=== PATIENT | female | born 1945 | race Two or more races ===

== ENCOUNTER 2018-06-25 10:03 | Outpatient (CLI) | payer OTHER | END 2018-06-25 10:12 | disposition home or self-care (01) | LOC: SONOGRAMA 10:03 | DX: E04.2 Nontoxic multinodular goiter (principal) ==

== ENCOUNTER 2022-05-13 06:00 | Day surgery (SDC) | payer OTHER ==
[~2022-05-13 06:00] MED LIST: CREST PO; DIGOX PO; GABAPENTIN100 M2 PO; HORIZANT600 MG PO; INVOKANA300 MG PO; JANUVIA PO; LEVEMIR; MYSOLINE50 MG PO; OMEPRAZO PO; SINGULAIR10 MG PO; VALSAR PO; VITAMIN D-40010 MCG PO; [UNRECOGNIZED DRUG - OTHER] PO
== END 2022-05-13 10:55 | disposition home or self-care (01) ==
LOC: CIR.AMB 06:00
PROVIDERS: ATTEND Anesthesiology Pain Medicine
DX: M51.15 Intervertebral disc disorders with radiculopathy, thoracolumbar region (principal); Z20.822 Contact with and (suspected) exposure to COVID-19; Z79.84 Long term (current) use of oral hypoglycemic drugs; E11.9 Type 2 diabetes mellitus without complications; I10 Essential (primary) hypertension; Z95.0 Presence of cardiac pacemaker; J44.9 Chronic obstructive pulmonary disease, unspecified; Z99.89 Dependence on other enabling machines and devices; G47.33 Obstructive sleep apnea (adult) (pediatric); Z87.891 Personal history of nicotine dependence; E66.9 Obesity, unspecified

== ENCOUNTER 2022-07-06 07:30 | Inpatient (IN) | payer OTHER ==
[~2022-07-06] VITALS: Ht 157.5 cm; Wt 82.1 kg
[2022-07-06] MEDS ORDERED: SPIRIVA RESPIMAT4 G1 IH (09:16)
[2022-07-06] MEDS ORDERED: SINGULAIR 10MG10 MG (09:16)
[2022-07-06] MEDS ORDERED: WIXELA 500-501 EACH IH (09:17)
[2022-07-06] MEDS ORDERED: RELTONE200 MG PO (09:17)
[2022-07-06] MEDS ORDERED: PROAIR RESPICL90 MCG IH (09:17)
[2022-07-06] MEDS ORDERED: SEROQUEL XR150 MG PO (09:18)
[2022-07-06] MEDS ORDERED: BUDESONIDE0.5 MG/2 M (09:19)
[2022-07-06] MEDS ORDERED: SYMBICORT 16010.2 GM IH (09:19)
[2022-07-06] MEDS ORDERED: INVOKANA300 MG PO (09:20)
[2022-07-06] MEDS ORDERED: LEVEMIR100 UNIT/1 (09:20)
[2022-07-06] MEDS ORDERED: GRALISE600 MG PO (09:21)
[2022-07-06] MEDS ORDERED: LEXAPRO20 MG PO (09:21)
[2022-07-06] MEDS ORDERED: MIRAPEX0.25 MG PO (09:22)
[2022-07-06] MEDS ORDERED: ULTRAM50 MG PO (09:22)
[2022-07-06] MEDS ORDERED: PRIMIDONE50 MG PO (09:22)
[2022-07-18] MEDS ORDERED: CRESTOR10 MG (16:17)
[2022-07-18] MEDS ORDERED: VALSARTAN320 MG (16:17)
[2022-07-18] MEDS ORDERED: JANUVIA25 MG (16:18)
[2022-07-18] MEDS ORDERED: OMEPRAZOLE MAGN20 MG (16:18)
[2022-07-18] MEDS ORDERED: DIGOX250 MCG (16:19)
[2022-07-20] MEDS ORDERED: OXYC1TAB9 PO (06:52)
[2022-07-20] MEDS ORDERED: BACTRIM DS TAB1 EACH PO (06:52)
[2022-07-20] MEDS ORDERED: INTEGRA PLUS C1 EACH PO (06:52)
[2022-07-20] MEDS ORDERED: XARELTO10 MG PO (06:52)
== END 2022-07-20 11:08 | DRG 470 ==
LOC: SURG 07-11 07:30 → O/R 07-18 07:11 → SURG 07-18 15:48
PROVIDERS: ADMIT Orthopaedic Surgery Sports Medicine; ATTEND Orthopaedic Surgery Sports Medicine
PROC: 0SRB0JZ Replacement of Left Hip Joint with Synthetic Substitute, Open Approach (ICD-10-PCS; principal; 2022-07-18 10:00)
DX: M16.12 Unilateral primary osteoarthritis, left hip (principal); I10 Essential (primary) hypertension; E11.9 Type 2 diabetes mellitus without complications; J44.9 Chronic obstructive pulmonary disease, unspecified; G47.33 Obstructive sleep apnea (adult) (pediatric); G20 Parkinson's disease; Z96.642 Presence of left artificial hip joint; Z20.822 Contact with and (suspected) exposure to COVID-19

== ENCOUNTER 2023-01-19 13:53 | Outpatient (CLI) | payer OTHER ==
[~2023-01-19 13:53] MED LIST changes: +BACTRIM DS TAB1 EACH PO; +BUDESONIDE0.5 MG/2 M; +CRESTOR10 MG; +DIGOX250 MCG; +GRALISE600 MG PO; +INTEGRA PLUS C1 EACH PO; +JANUVIA25 MG; +LEVEMIR100 UNIT/1; +LEXAPRO20 MG PO; +MIRAPEX0.25 MG PO; +OMEPRAZOLE MAGN20 MG; +OXYC1TAB9 PO; +PRIMIDONE50 MG PO; +PROAIR RESPICL90 MCG IH; +RELTONE200 MG PO; +SEROQUEL XR150 MG PO; +SINGULAIR 10MG10 MG; +SPIRIVA RESPIMAT4 G1 IH; +SYMBICORT 16010.2 GM IH; +ULTRAM50 MG PO; +VALSARTAN320 MG; +WIXELA 500-501 EACH IH; +XARELTO10 MG PO
== END 2023-01-19 13:54 | disposition home or self-care (01) ==
LOC: NUCLEAR 13:53
PROVIDERS: ATTEND Anesthesiology Pain Medicine
DX: M85.80 Other specified disorders of bone density and structure, unspecified site (principal)

== ENCOUNTER 2023-02-06 12:46 | Outpatient (CLI) | payer OTHER | END 2023-02-06 12:52 | disposition home or self-care (01) | LOC: MRI 12:46 | PROVIDERS: ATTEND Anesthesiology Pain Medicine | DX: M47.26 Other spondylosis with radiculopathy, lumbar region (principal); M99.53 Intervertebral disc stenosis of neural canal of lumbar region; M43.16 Spondylolisthesis, lumbar region; M51.15 Intervertebral disc disorders with radiculopathy, thoracolumbar region | CPT/HCPCS: 72148 ==

== ENCOUNTER → 2024-08-16 12:07 | Outpatient (CLI) | payer OTHER ==
[2024-08-16 12:49] LABS: HEMATOCRIT 36.6 % (36.0-45.00); HEMOGLOBIN 12.2 g/dL (12.0-15.00); MEAN CELL VOLUME 87.6 fL (80.00-100.00); MEAN CORPUSCULAR HEMOGLOBIN 29.3 pg (27.00-32.0); MEAN CORPUSCULAR HGB CONC 33.4 g/dl (32.0-36.0); PLATELET COUNT 196 K/uL (150-450); RED BLOOD COUNT 4.18 M/uL (4.00-6.00); RED CELL DISTRIBUTION WIDTH 14.4 % (11.5-14.5)
[2024-08-16 13:12] LABS: COL EPI 97 SECONDS (82-175)
[2024-08-16 13:14] LABS: INR 1.02; PARTIAL THROMBOPLASTIN TIME 32.8 SECONDS (22.0-34.0); PROTHROMBIN TIME 11.1 SECONDS (9.0-11.5)
[2024-08-16 13:37] LABS: PH,URINE 5.5 (5.0-8.0); URINE APPEARANCE Clear; URINE BILIRRUBIN Negative (NEGATIVE); URINE BLOOD Negative; URINE COLOR Yellow; URINE KETONE Negative (NEGATIVE); URINE LEUKOCYTE Negative; URINE NITRATE Negative; URINE PROTEIN Negative (NEGATIVE); URINE UROBILINOGEN 0.2 E.U./dl
[2024-08-16 13:40] LABS: URINE BACTERIA 7.5 uL (0.0-1933); URINE EPITHELIAL CELLS 8.1 uL (0.0-38.8); URINE WBC 6.7 uL (0.0-23.2)
[2024-08-16 13:47] LABS: URINE GLUCOSE >=1000 MG/DL (NEGATIVE); URINE RBC 1.3 uL (0.0-20.8)
[2024-08-16 13:58] LABS: ALBUMIN 3.6 gm/dL (3.4-5.0); BILIRUBIN TOTAL 0.26 mg/dL (0.3-1.2); CALCIUM 9.7 mg/dL (8.5-10.1); CREATININE SERUM 1.14 mg/dL (0.55-1.02); GFR 46.1; GLOBULINA 4.1 G/DL (2.4-3.5); POTASSIUM 5.03 mEq/L (3.5-5.1); TOTAL PROTEIN 7.7 gm/dL (6.4-8.2)
== END | disposition home or self-care (01) ==
LOC: LAB 12:07
PROVIDERS: ATTEND Anesthesiology Pain Medicine
DX: M48.07 Spinal stenosis, lumbosacral region (principal); M99.33 Osseous stenosis of neural canal of lumbar region; Z01.818 Encounter for other preprocedural examination

== ENCOUNTER → 2024-09-12 11:38 | Outpatient (CLI) | payer OTHER ==
[2024-09-12 13:20] LABS: HEMATOCRIT 38.2 % (36.0-45.00); MEAN CELL VOLUME 86.7 fL (80.00-100.00); MEAN CORPUSCULAR HEMOGLOBIN 29.5 pg (27.00-32.0); PLATELET COUNT 212 K/uL (150-450); RED CELL DISTRIBUTION WIDTH 14.2 % (11.5-14.5)
[2024-09-12 14:02] LABS: COL EPI 115 SECONDS (82-175)
[2024-09-12 14:07] LABS: ALBUMIN 3.6 gm/dL (3.4-5.0); BILIRUBIN TOTAL 0.26 mg/dL (0.3-1.2); CALCIUM 9.8 mg/dL (8.5-10.1); CREATININE SERUM 1.25 mg/dL (0.55-1.02); GFR 41.45; GLOBULINA 4.3 G/DL (2.4-3.5); INR 1.04; PARTIAL THROMBOPLASTIN TIME 31.8 SECONDS (22.0-34.0); PROTHROMBIN TIME 11.3 SECONDS (9.0-11.5); TOTAL PROTEIN 7.9 gm/dL (6.4-8.2)
[2024-09-12 14:08] LABS: POTASSIUM 5.42 mEq/L (3.5-5.1)
[2024-09-12 14:11] LABS: URINE APPEARANCE Clear; URINE BILIRRUBIN Negative (NEGATIVE); URINE BLOOD Negative; URINE COLOR Yellow; URINE KETONE Negative (NEGATIVE); URINE LEUKOCYTE Negative; URINE NITRATE Negative; URINE PROTEIN Negative (NEGATIVE); URINE UROBILINOGEN 0.2 E.U./dl
[2024-09-12 14:12] LABS: URINE BACTERIA 18.8 uL (0.0-1933); URINE EPITHELIAL CELLS 4.3 uL (0.0-38.8); URINE RBC 3.2 uL (0.0-20.8); URINE WBC 6.6 uL (0.0-23.2)
[2024-09-12 14:14] LABS: URINE CAST 0.15 uL (0.0-1.40); URINE GLUCOSE >=1000 MG/DL (NEGATIVE)
== END | disposition home or self-care (01) ==
LOC: LAB 11:38
PROVIDERS: ATTEND Anesthesiology Pain Medicine
DX: M48.07 Spinal stenosis, lumbosacral region (principal); M99.33 Osseous stenosis of neural canal of lumbar region; Z01.818 Encounter for other preprocedural examination; N39.0 Urinary tract infection, site not specified

== ENCOUNTER 2024-09-20 07:00 | Day surgery (SDC) | payer OTHER ==
[~2024-09-20 07:00] MED LIST changes: +JARDIANCE10 MG PO; +LANTUS SOL100 UNIT/1; +OMEGA-31000 MG PO; +PRILOSEC OTC20 MG; +RESTORIL
[2024-09-20] MEDS ORDERED: IOHEXOL 240 mgI/ML 100ML BOTT IV ONE (15:00)
[2024-09-20] MEDS ORDERED: DEXAMETHASONE SODIUM PHOSPHATE 4 MG/ML VIAL IJ ONE (15:00)
[2024-09-20] MEDS ORDERED: BUPIVACAINE HCL 30 ML VIAL IJ ONE (15:00)
[2024-09-20] MEDS ORDERED: LIDOCAINE HCL 1% 20 ML VIAL IJ ONE (15:00)
== END 2024-09-20 17:45 | disposition home or self-care (01) ==
LOC: CIR.AMB 07:00
PROVIDERS: ATTEND Anesthesiology Pain Medicine
DX: M99.33 Osseous stenosis of neural canal of lumbar region (principal); M51.26 Other intervertebral disc displacement, lumbar region; M48.07 Spinal stenosis, lumbosacral region; M99.63 Osseous and subluxation stenosis of intervertebral foramina of lumbar region